=== PATIENT | male | born 1960 | race Caucasian/White ===

== ENCOUNTER 2024-08-14 19:16 | Emergency (ER) | payer OTHER ==
[2024-08-14] MEDS: Diphtheria,Pertussis(Acell),Tetanus Vaccine 0.5 ML Syringe IM ONE (21:02)
[2024-08-14] MEDS: Lidocaine 1% 10 ML MDV INJECT ONE (21:02)
== END 2024-08-14 21:21 | disposition home or self-care (01) ==
LOC: JP.ED 19:16
DX: S90.454A Superficial foreign body, right lesser toe(s), initial encounter (principal); Z23 Encounter for immunization; W45.8XXA Other foreign body or object entering through skin, initial encounter; Y93.89 Activity, other specified
CPT/HCPCS: 90471; 99283; J2003